=== PATIENT | male | born 1955 | race Caucasian/White ===

== ENCOUNTER 2017-08-14 08:35 | Emergency (ER) | payer BC ==
[~2017-08-14] VITALS: Ht 175.3 cm; Wt 138.6 kg
[~2017-08-14 08:35] MED LIST: APRESOLINE 25MG25 MG PO; ATIVAN 1MG T1 MG/TAB PO; COLACE 100100 MG/CAP PO; COREG 25MG25 MG/TAB PO; DIOVAN 160MG160 MG PO; GLUCOSAMINE MSM1 TAB PO; HCTZ 25MG TAB25 MG PO; MULTI-VITAMIN W1 TA1 PO; NORVASC 10MG10 MG PO; OMEGA 31000 MG PO; TOPROL XL100 MG PO; ZESTRIL40 MG PO; ZOCOR 10MG10 MG PO; ZOLOFT 25MG25 MG PO
[2017-08-14] MEDS ORDERED: ATACAND32 MG PO (09:00)
[2017-08-14] MEDS ORDERED: LASIX 40MG TABL40 MG PO (09:01)
[2017-08-14] MEDS ORDERED: COLACE 100100 MG/CAP PO (09:01)
[2017-08-14] MEDS ORDERED: ALDACTONE 25MG25 M1 PO (09:01)
[2017-08-14] MEDS ORDERED: OMEGA-3 1000 MG1 CAP PO (09:02)
[2017-08-14] MEDS ORDERED: GLUCOSAMIN 500 PO (09:02)
[2017-08-14] MEDS ORDERED: MIRALAX PA17 GM/Dose PO (09:02)
[2017-08-14 09:51] LABS: BASO % 0.5 % (0.0-2.0); EOS # 0.1 (0.0-0.7); EOS % 1.2 % (0-4.0); GRAN # 4.9 (1.4-6.5); GRAN % 74.7 % (42.2-75.2); HEMATOCRIT 37.4 % (42.0-52.0); HEMOGLOBIN 12.6 g/dl (13.5-18.0); LYMPH # 0.9 (1.2-3.4); LYMPH % 13.8 % (20.0-51.0); MEAN CELL VOLUME 94 fl (80.0-100.0); MEAN CORPUSCULAR HEMOGLOBIN 32 pg (27.0-31.0); MEAN CORPUSCULAR HGB CONC 34 g/dl (33.0-37.0); MEAN PLATELET VOLUME 9.7 fl (7.4-10.4); MONO # 0.6 (0.1-0.6); PLATELET COUNT 198 K/mm3 (130-400); RED BLOOD COUNT 3.97 M/mm3 (4.20-5.60); WHITE BLOOD COUNT 6.6 K/mm3 (4.8-10.8)
[2017-08-14 10:03] LABS: ADJUSTED CALCIUM 9.2 mg/dL (8.4-10.2); ALBUMIN 4.2 gm/dL (3.5-5.0); BILIRUBIN,TOTAL 0.9 mg/dL (0.0-1.0); CALCIUM 9.4 mg/dL (8.4-10.2); CREATININE, serum 1.14 mg/dL (0.66-1.25); POTASSIUM 4.8 mmol/L (3.4-5.0); TOTAL PROTEIN 7.4 gm/dL (6.4-8.2)
[2017-08-14 10:15] LABS: B-TYPE NATRIURETIC PEPTIDE 47 pg/mL (0-125); TROPONIN-I < 0.012 ng/mL (0.000-0.034)
[2017-08-14 10:22] LABS: COLLECTION METHOD CLEAN CATCH
[2017-08-14 10:45] LABS: MUCOUS Present /lpf; PH 6 (5-8); SQUAMOUS EPITHELIAL None Seen /hpf; URINE APPEARANCE Clear; URINE BACTERIA None Seen /hpf; URINE BILIRUBIN Negative (NEGATIVE); URINE BLOOD Negative (NEGATIVE); URINE COLOR Yellow; URINE GLUCOSE Negative (NEGATIVE); URINE KETONE Negative (NEGATIVE); URINE LEUKOCYTE ESTERASE Negative (NEGATIVE); URINE PROTEIN(semi-quant) Negative (NEGATIVE); URINE RBC 0-2 /hpf; URINE UROBILINOGEN Negative (NEGATIVE); URINE WBC 0-2 /hpf
[2017-08-14] MEDS ORDERED: XANAX 0.5MG0.5 MG PO (10:51)
[2017-08-14 11:32] VITALS: BP 109/65; PULSE 62; TEMP 97.3
== END 2017-08-14 11:28 | disposition home or self-care (01) ==
LOC: COL.ER 08:35
PROVIDERS: Emergency Medicine
DX: S09.90XA Unspecified injury of head, initial encounter (principal); R55 Syncope and collapse; Z23 Encounter for immunization; W22.8XXA Striking against or struck by other objects, initial encounter
CPT/HCPCS: J7030

== ENCOUNTER → 2019-11-20 | Outpatient (CLI) | payer MEDICARE, OTHER ==
[~2019-11-20] MED LIST changes: +ALDACTONE 25MG25 M1 PO; +ATACAND32 MG PO; +GLUCOSAMIN 500 PO; +LASIX 40MG TABL40 MG PO; +MIRALAX PA17 GM/Dose PO; +OMEGA-3 1000 MG1 CAP PO; +XANAX 0.5MG0.5 MG PO
== END ==
LOC: COL.RAD 08:05
DX: N28.1 Cyst of kidney, acquired (principal)
CPT/HCPCS: Q9967

== ENCOUNTER 2020-11-29 07:36 | Day surgery (SDC) | payer MEDICARE, OTHER ==
[2020-11-29] VITALS (13 sets, daily range): BP systolic 157–184; BP diastolic 44–71; PULSE 35–63; TEMP 97.8–98.2
[~2020-11-29] VITALS: Ht 175.3 cm; Wt 138.0 kg
[2020-11-29] MEDS ORDERED: COREG12.5 MG PO (08:39)
[2020-11-29] MEDS ORDERED: ASPIRIN E.C. 8181 MG PO (08:42)
[2020-11-29] MEDS ORDERED: LIPITOR 10MG10 MG PO (08:43)
[2020-11-29 08:44] LABS: HEMATOCRIT 44.5 % (42.0-52.0); HEMOGLOBIN 14.5 g/dl (13.5-18.0); MEAN CELL VOLUME 90 fl (80.0-100.0); MEAN CORPUSCULAR HEMOGLOBIN 29 pg (27.0-31.0); MEAN CORPUSCULAR HGB CONC 33 g/dl (33.0-37.0); MEAN PLATELET VOLUME 10.6 fl (7.4-10.4); PLATELET COUNT 251 K/mm3 (130-400); RED BLOOD COUNT 4.94 M/mm3 (4.20-5.60); REDCELL DISTRIBUTION WIDTH-CV 13.2 % (11.5-14.5)
[2020-11-29 08:49] LABS: INR 1.2 (0.8-3.0); PROTHROMBIN TIME 12.9 SECONDS (9.7-12.8)
[2020-11-29 08:51] LABS: CALCIUM 9.3 mg/dL (8.4-10.2); CREATININE, serum 1.14 (0.66-1.25); POTASSIUM 3.8 mmol/L (3.4-5.0)
[2020-11-29] MEDS ORDERED: REMERON 15M15 MG/TA1 PO (11:22)
[2020-11-29] MEDS ORDERED: COZAAR100 MG PO ×2 (11:23)
[2020-11-30] VITALS (7 sets, daily range): BP systolic 154–208; BP diastolic 55–77; PULSE 58–63; TEMP 97.9–98
[2020-11-30 07:38] LABS: BASO % 0.5 % (0.0-2.0); EOS # 0.1 (0.0-0.7); EOS % 2.5 % (0-4.0); GRAN # 3.8 (1.4-6.5); GRAN % 69.2 % (42.2-75.2); HEMATOCRIT 41.5 % (42.0-52.0); HEMOGLOBIN 13.7 g/dl (13.5-18.0); LYMPH # 1.1 (1.2-3.4); LYMPH % 19.8 % (20.0-51.0); MEAN CELL VOLUME 90 fl (80.0-100.0); MEAN CORPUSCULAR HEMOGLOBIN 30 pg (27.0-31.0); MEAN CORPUSCULAR HGB CONC 33 g/dl (33.0-37.0); MEAN PLATELET VOLUME 11.1 fl (7.4-10.4); MONO # 0.4 (0.1-0.6); MONO % 7.6 % (1.7-9.3); PLATELET COUNT 201 K/mm3 (130-400); RED BLOOD COUNT 4.62 M/mm3 (4.20-5.60); REDCELL DISTRIBUTION WIDTH-CV 13.3 % (11.5-14.5)
[2020-11-30 08:03] LABS: ALBUMIN 3.5 gm/dL (3.5-5.0); BILIRUBIN,TOTAL 0.7 mg/dL (0.0-1.0); CREATININE, serum 0.99 (0.66-1.25); POTASSIUM 3.8 mmol/L (3.4-5.0); TOTAL PROTEIN 6.5 gm/dL (6.4-8.2)
[2020-11-30] MEDS ORDERED: COREG 25MG25 MG/TAB PO (11:58)
[2020-11-30] MEDS ORDERED: DIOVAN HCT 25 M1 TAB PO (12:01)
== END 2020-11-30 14:23 | disposition home or self-care (01) ==
LOC: COL.CAR → MEDICAL 11:15 → COL.CAR 11-30 14:23
PROVIDERS: Internal Medicine Cardiovascular Disease
DX: Z45.010 Encounter for checking and testing of cardiac pacemaker pulse generator [battery] (principal); I44.2 Atrioventricular block, complete; I10 Essential (primary) hypertension; I70.1 Atherosclerosis of renal artery; I47.1 Supraventricular tachycardia; G47.33 Obstructive sleep apnea (adult) (pediatric); Z99.89 Dependence on other enabling machines and devices
CPT/HCPCS: OP; C1769; C1785; C1892; C1894; C1898; J0690; J2250; J3010; J7030

== ENCOUNTER → 2022-01-05 | Outpatient (CLI) | payer MEDICARE, OTHER ==
[~2022-01-05] MED LIST changes: +ASPIRIN E.C. 8181 MG PO; +COREG12.5 MG PO; +COZAAR100 MG PO; +DIOVAN HCT 25 M1 TAB PO; +LIPITOR 10MG10 MG PO; +REMERON 15M15 MG/TA1 PO
== END ==
LOC: COL.VAS 08:42
DX: R06.02 Shortness of breath (principal); M79.89 Other specified soft tissue disorders

== ENCOUNTER 2024-01-01 12:21 | Emergency (ER) | payer MEDICARE, OTHER ==
[~2024-01-01] VITALS: Ht 175.3 cm; Wt 138.6 kg
[2024-01-01 12:25] VITALS: TEMP 98.2
[2024-01-01 12:58] LABS: BASO # 0.1 K/mm3 (0.0-0.2); BASO % 0.6 % (0.0-2.0); EOS # 0.2 K/mm3 (0.0-0.7); EOS % 2.3 % (0.0-4.0); GRAN # 6.6 K/mm3 (1.4-6.5); HEMOGLOBIN 10.5 g/dl (13.5-18.0); LYMPH # 1.1 K/mm3 (1.2-3.4); LYMPH % 12.6 % (20.0-51.0); MEAN CELL VOLUME 72 fl (80.0-100.0); MEAN CORPUSCULAR HEMOGLOBIN 22 pg (27-31); MEAN CORPUSCULAR HGB CONC 31 g/dl (33.0-37.0); MEAN PLATELET VOLUME 9.6 fl (7.4-10.4); MONO # 0.8 K/mm3 (0.1-0.6); MONO % 8.8 % (1.7-9.3); PLATELET COUNT 325 K/mm3 (130-400); RED BLOOD COUNT 4.78 M/mm3 (4.20-5.60)
[2024-01-01 12:59] LABS: HEMATOCRIT 34.3 % (42.0-52.0)
[2024-01-01 13:04] LABS: INR 2.6 (0.8-3.0); PROTHROMBIN TIME 27.1 SECONDS (9.7-12.8)
[2024-01-01 13:13] LABS: ALBUMIN 3.5 g/dL (3.4-4.8); BILIRUBIN,TOTAL 0.5 mg/dL (0.2-1.2); CALCIUM 9.2 mg/dL (8.4-10.2); CREATININE, serum 1.26 mg/dL (0.72-1.25); POTASSIUM 4.4 mEq/L (3.5-4.5); TOTAL PROTEIN 7.1 g/dl (6.2-8.1)
[2024-01-01 13:19] LABS: TROPONIN-I 0.021 ng/mL (0.00-0.033)
[2024-01-01 14:52] VITALS: BP 132/66; PULSE 61
== END 2024-01-01 14:55 | disposition other institution (70) ==
LOC: COL.ER 12:21
PROVIDERS: Emergency Medicine
DX: I48.92 Unspecified atrial flutter (principal); Z79.01 Long term (current) use of anticoagulants; Z95.0 Presence of cardiac pacemaker

== ENCOUNTER 2024-01-03 10:55 | Inpatient (IN) | payer MEDICARE, OTHER ==
[~2024-01-03] VITALS: Ht 175.3 cm; Wt 140.0 kg
[2024-01-08] VITALS (7 sets, daily range): BP systolic 129–148; BP diastolic 76–84; PULSE 57–61; TEMP 97.9–98.5
[2024-01-08] MEDS ORDERED: APRESOLINE50 MG PO (09:20)
[2024-01-08 09:22] LABS: BASO % 0.5 % (0.0-2.0); EOS # 0.2 K/mm3 (0.0-0.7); EOS % 2.2 % (0.0-4.0); GRAN # 5.9 K/mm3 (1.4-6.5); LYMPH # 0.9 K/mm3 (1.2-3.4); LYMPH % 11.7 % (20.0-51.0); MEAN CELL VOLUME 72 fl (80.0-100.0); MEAN CORPUSCULAR HGB CONC 31 g/dl (33.0-37.0); MEAN PLATELET VOLUME 10.4 fl (7.4-10.4); MONO # 0.6 K/mm3 (0.1-0.6); MONO % 8.3 % (1.7-9.3); PLATELET COUNT 269 K/mm3 (130-400); RED BLOOD COUNT 4.45 M/mm3 (4.20-5.60); REDCELL DISTRIBUTION WIDTH-CV 18.3 % (11.5-14.5)
[2024-01-08] MEDS ORDERED: COUMADIN 5MG5 MG/TAB PO (09:22)
[2024-01-08 09:26] LABS: HEMATOCRIT 32.1 % (42.0-52.0); HEMOGLOBIN 9.8 g/dl (13.5-18.0); MEAN CORPUSCULAR HEMOGLOBIN 22 pg (27-31)
[2024-01-08 09:30] LABS: INR 2.6 (0.8-3.0); PROTHROMBIN TIME 28.1 SECONDS (9.7-12.8)
[2024-01-08 09:47] LABS: ALBUMIN 3.4 g/dL (3.4-4.8); BILIRUBIN,TOTAL 0.6 mg/dL (0.2-1.2); CREATININE, serum 1.44 mg/dL (0.72-1.25); MAGNESIUM 1.8 mg/dL (1.6-2.6); POTASSIUM 5.2 mEq/L (3.5-4.5); TOTAL PROTEIN 7.4 g/dl (6.2-8.1)
[2024-01-08] MEDS ORDERED: COREG 25MG25 MG/TAB PO (11:30)
[2024-01-08] MEDS ORDERED: Docusate Sodium 100 MG CAP PO PRN (11:30)
[2024-01-08] MEDS ORDERED: Polyethylene Glycol 3350 17 GM PDS PO PRN (11:30)
[2024-01-08] MEDS ORDERED: Acetaminophen 325 MG TAB PO PRN (11:30)
[2024-01-08] MEDS ORDERED: Temazepam 15 MG CAP PO PRN (11:30)
[2024-01-08] MEDS ORDERED: LASIX 20MG TABL20 MG PO (11:49)
[2024-01-08] MEDS ORDERED: COUMADIN 22.5 MG/TAB PO (12:03)
[2024-01-08] MEDS ORDERED: hydrALAZINE 25 MG TAB PO SCH (14:00)
--- NOTE | 2024-01-08 14:51 | NUR ---
Patient admitted to unit around 0830. Gait is steady. Skin intact. Stable on room air. Patient states he has difficulty getting up from bed/chair and has a history of syncope episodes, encouraged to call for assistance when wanting to get up. Patient verbalized understanding. IV initiated in left hand by MARY JANE Peterson. Telemetry on. at bedside. Tolerating food and fluids well. States he sometimes feels symptomatic from Afib, but overall he feels good. Discussed plans with daily EKGs and scheduled Sotalol. Patient verbalized understanding. Discussed medication reconciliation with MARY JANE Orellana from cardiology. Call light within reach, all needs met at this time.
[2024-01-08 15:21] LABS: CREATININE, serum 1.35 mg/dL (0.72-1.25); POTASSIUM 4.6 mEq/L (3.5-4.5)
[2024-01-08] MEDS ORDERED: Atorvastatin 10 MG TAB PO SCH (21:00)
[2024-01-08] MEDS ORDERED: Mirtazapine 15 MG TAB PO SCH (21:00)
--- NOTE | 2024-01-08 21:13 | NUR ---
NURSING SHIFT ASSESSMENT COMPLETED. THE PATIENT IS ALERT AND ORIENTED AND APPROPRIATE. THE PATIENT DENIES PAIN OR DISCOMFORT. THE PATIENT STATES THAT HE IS TIRED AT THIS TIME. NO OTHER NEEDS AT THIS TIME. THE PATIENT IS SITTING IN THE RECLINER. THE PLAN OF CARE AND EVENING MEDICATIONS REVIEWED. QUESTIONS AND CONCERNS ADDRESSED. CALL LIGHT AND PERSONAL BELONGINGS WITHIN REACH. THE BED IS IN THE LOW POSITION. THIS CURRICULUM FACILITATOR ASSISTED THE PATIENT WITH HIS CPAP SETUP.
[2024-01-09] VITALS (13 sets, daily range): BP systolic 119–151; BP diastolic 68–85; PULSE 57–86; TEMP 98–98.9
[2024-01-09 06:14] LABS: CALCIUM 8.8 mg/dL (8.4-10.2); CREATININE, serum 1.23 mg/dL (0.72-1.25); POTASSIUM 4.4 mEq/L (3.5-4.5)
[2024-01-09 07:55] LABS: BASO # 0.1 K/mm3 (0.0-0.2); BASO % 0.8 % (0.0-2.0); EOS # 0.2 K/mm3 (0.0-0.7); EOS % 2.3 % (0.0-4.0); GRAN # 4.5 K/mm3 (1.4-6.5); GRAN % 70.8 % (42.2-75.2); LYMPH # 1.1 K/mm3 (1.2-3.4); LYMPH % 16.7 % (20.0-51.0); MEAN CELL VOLUME 71 fl (80.0-100.0); MEAN CORPUSCULAR HGB CONC 31 g/dl (33.0-37.0); MEAN PLATELET VOLUME 10.1 fl (7.4-10.4); MONO # 0.6 K/mm3 (0.1-0.6); MONO % 9.1 % (1.7-9.3); PLATELET COUNT 293 K/mm3 (130-400); RED BLOOD COUNT 4.42 M/mm3 (4.20-5.60); REDCELL DISTRIBUTION WIDTH-CV 18.4 % (11.5-14.5)
[2024-01-09 07:58] LABS: HEMATOCRIT 31.5 % (42.0-52.0); HEMOGLOBIN 9.7 g/dl (13.5-18.0); MEAN CORPUSCULAR HEMOGLOBIN 22 pg (27-31)
[2024-01-09] MEDS ORDERED: LOSARTAN 50 MG PO SCH (09:00)
[2024-01-09] MEDS ORDERED: HYDROCHLOROTHIAZIDE 25 MG PO SCH (09:00)
[2024-01-09] MEDS ORDERED: Omega-3 Fatty Acid Esters (OTC) 1,000 MG CAP PO SCH (09:00)
[2024-01-09] MEDS ORDERED: Docusate Sodium 100 MG CAP PO SCH (09:00)
[2024-01-09] MEDS ORDERED: Ferrous Sulfate 325 MG TAB PO SCH (10:13)
--- NOTE | 2024-01-09 10:27 | NUR ---
Initial visit; Patient and his thanked Development Intern for looking in on him and offering Spiritual Care. Bartolome was receptive to Development Intern keeping him in her prayers. Development Intern wished him well.
--- NOTE | 2024-01-09 11:34 | NUR ---
Patient alert and oriented x4. Sitting up in recliner upon entry in to room. Patient denies pain or discomfort. Expressed concern over bloody IV extension tubing, tubing flushed with no issues. Patient takes daily Coumadin. Heart rhythm irregular, rate within normal limits. Tolerating food and fluids well. Discussed possible cardioversion tomorrow per cardiology orders. Call light within reach, at bedside. All needs met at this time.
--- NOTE | 2024-01-09 13:58 | NUR ---
Follow-up visit; Patient asked that Laboratory Machinist return to 'cheer him up.' He, his and Laboratory Machinist visited about what was going on with him; his loss of comfort and control due to change of surroundings and feeling 'cranky' because his life is turned upside-down. He said he just wanted to hear laughter and there was plenty of laughter and a [place] from Numbers [phone]. He and Geno thanked Laboratory Machinist for returning.
--- NOTE | 2024-01-09 15:06 | NUR ---
REFUGIO Berry identified self as REFUGIO Student and completed intake with patient and at bedside. Patient lives in [place], [place] with his Geno (ph#[phone]). Patient sees Dr. Dominique Mccracken for primary care and stated that he is needing to follow up with her as he hasn't in awhile. Patient obtains medications from [facility] with no issues. Patient stated that he is independent with ADLs but sometimes needs assistance with getting his shoes on and off. Patient stated that he does not utilize any mobility devices and does use a CPAP. Patient stated that he usually transports himself to medical appointments. stated that she is designated as patient's primary DPOA-HC but thinks their children may also be listed as alternates. REFUGIO Student discussed Home Health as an option if needed. Patient stated that he thinks at this time it is not needed. REFUGIO Student advised patient to discuss Home Health with PCP if needed in the future. Patient stated that he plans to return home at time of discharge. Discharge Plan: Home
--- NOTE | 2024-01-09 19:20 | NUR ---
Patient remains stable. Denies pain. Reports a couple of loose stools, but states he believes it was something he ate. Expressed concern over gallbladder due to family history, states he gets loose stools more frequently now in reaction to food. Patient worried he will have loose stool during cardioversion. Patient encouraged to follow up with PCP regarding gallbladder concerns, but attempted to update cardiology regarding loose stools and patient concerns. Cardiology paged, no call returned. at bedside and is spending the night with permission from night charge nurse as well as floor installer MARY JANE Sunshine. Call light within reach, all needs met at this time.
[2024-01-09] MEDS ORDERED: Warfarin 5 MG TAB PO SCH (21:00)
--- NOTE | 2024-01-09 21:00 | NUR ---
Initial shift assessment done- denies any chest pain/heart racing, Up in chair, Up in room as tolerated, steady on feet. Tele on- aflutter per telephone worker,, VSS, NPO after MN for ? C/V in am.
[2024-01-10] VITALS (12 sets, daily range): BP systolic 111–156; BP diastolic 62–89; PULSE 60–70; TEMP 97.4–98.5
--- NOTE | 2024-01-10 05:53 | NUR ---
No requests, Has been resting quietly most of the night-- VSS, Tele on -no calls from Tele as to any changes
[2024-01-10 06:46] LABS: BASO % 0.6 % (0.0-2.0); EOS # 0.2 K/mm3 (0.0-0.7); EOS % 2.8 % (0.0-4.0); GRAN # 4.7 K/mm3 (1.4-6.5); GRAN % 71.3 % (42.2-75.2); LYMPH % 14.5 % (20.0-51.0); MEAN CELL VOLUME 71 fl (80.0-100.0); MEAN CORPUSCULAR HGB CONC 31 g/dl (33.0-37.0); MEAN PLATELET VOLUME 9.6 fl (7.4-10.4); MONO # 0.7 K/mm3 (0.1-0.6); MONO % 10.2 % (1.7-9.3); PLATELET COUNT 292 K/mm3 (130-400); RED BLOOD COUNT 4.25 M/mm3 (4.20-5.60); REDCELL DISTRIBUTION WIDTH-CV 18.4 % (11.5-14.5)
[2024-01-10 06:53] LABS: HEMATOCRIT 30.2 % (42.0-52.0); HEMOGLOBIN 9.4 g/dl (13.5-18.0); MEAN CORPUSCULAR HEMOGLOBIN 22 pg (27-31)
--- NOTE | 2024-01-10 07:00 | NUR ---
Patient in sitting up in chair, alert and oriented x 4, at bedside. Denies any chest pain or palpitations. NPO from midnight. He signed consent for cardioversion. Assessment completed, student nurse at bedside. No further needs at this time. Call light within reach.
[2024-01-10 07:02] LABS: CALCIUM 8.8 mg/dL (8.4-10.2); CREATININE, serum 1.21 mg/dL (0.72-1.25); INR 2.1 (0.8-3.0); POTASSIUM 4.1 mEq/L (3.5-4.5); PROTHROMBIN TIME 22.3 SECONDS (9.7-12.8)
--- NOTE | 2024-01-10 07:45 | NUR ---
NURSING SHIFT ASSESSMENT COMPLETED. PATIENT ALERT AND ORIENTED X4. PATIENT RESTING IN RECLINER; SPOUSE AT BEDSIDE. TELEMETRY IN PLACE; KRISTIE, PACED AT 60BPM. PATIENT NPO SINCE MIDNIGHT IN PREPARATION FOR CARDIOVERSION THIS MORNING. PATIENT DENIES PAIN AT THIS TIME. QUESTIONS AND CONCERNS REVIEWED. CALL LIGHT WITHIN REACH.
--- NOTE | 2024-01-10 11:23 | NUR ---
Follow-up visit; Patient and his Geno thanked for looking in on him and saying a blessing prior to his going in for a 'Procedure' with Dr. Ramey. wished him well and said it is a pleasure knowing them.
--- NOTE | 2024-01-10 13:34 | NUR ---
Patient is taken for cardioversion.
[2024-01-10] MEDS ORDERED: Lidocaine PF 2% (20 MG/ML) 5 ML VIAL ONE (13:47)
[2024-01-10] MEDS ORDERED: Hydrocortisone 1% Cream 30 GM TUBE TP PRN (14:30)
[2024-01-10] MEDS ORDERED: BETAPACE 80MG80 MG PO (14:34)
--- NOTE | 2024-01-10 14:48 | NUR ---
PATIENT ALERT AND ORIENTED, VSS. PATIENT TRANSPORTED VIA BED TO [facility]. UPDATE PROVIDED TO PATIENT'S SPOUSE. VITAL SIGNS TAKEN ON ARRIVAL, VSS. PATIENT DENIES COMPLAINTS AT THIS TIME. CALL LIGHT PLACED WITHIN REACH, BED IN LOWEST POSITION, X3 BEDRAILS IN PLACE. TRANSFER OF CARE TO MARY JANE SALEEM.
--- NOTE | 2024-01-10 14:48 | NUR ---
Patient is back from cardioversion, alert and oriented x 4. VSS. Denies any pain or discomfort.
--- NOTE | 2024-01-10 16:23 | NUR ---
Patient was provided with discharge information, all questionsn answered. IV access and telemetry were discontinnued.
== END 2024-01-10 16:30 | disposition home or self-care (01) | DRG 310 ==
LOC: MEDICAL 01-08 08:15
PROVIDERS: ADMIT Internal Medicine Cardiovascular Disease
PROC: 5A2204Z Restoration of Cardiac Rhythm, Single (ICD-10-PCS; principal; 2024-01-10)
DX: I48.0 Paroxysmal atrial fibrillation (principal); E87.5 Hyperkalemia; I48.92 Unspecified atrial flutter; I34.0 Nonrheumatic mitral (valve) insufficiency; I47.20 Ventricular tachycardia, unspecified; Z95.0 Presence of cardiac pacemaker; Z23 Encounter for immunization
CPT/HCPCS: J2704

== ENCOUNTER 2024-01-13 08:36 | Emergency (ER) | payer MEDICARE, OTHER ==
[~2024-01-13] VITALS: Ht 175.3 cm; Wt 140.0 kg
[~2024-01-13 08:36] MED LIST changes: +APRESOLINE50 MG PO; +BETAPACE 80MG80 MG PO; +COUMADIN 22.5 MG/TAB PO; +COUMADIN 5MG5 MG/TAB PO; +LASIX 20MG TABL20 MG PO
[2024-01-13 08:44] VITALS: TEMP 98.3
[2024-01-13] MEDS ORDERED: Furosemide 40 MG/4 ML VIAL IV ONE (09:30)
[2024-01-13 09:46] LABS: BASO % 0.4 % (0.0-2.0); EOS # 0.1 K/mm3 (0.0-0.7); GRAN # 7.6 K/mm3 (1.4-6.5); GRAN % 81.3 % (42.2-75.2); LYMPH # 0.8 K/mm3 (1.2-3.4); LYMPH % 8.5 % (20.0-51.0); MEAN CELL VOLUME 72 fl (80.0-100.0); MEAN CORPUSCULAR HGB CONC 30 g/dl (33.0-37.0); MEAN PLATELET VOLUME 9.9 fl (7.4-10.4); MONO # 0.8 K/mm3 (0.1-0.6); MONO % 8.3 % (1.7-9.3); PLATELET COUNT 321 K/mm3 (130-400); RED BLOOD COUNT 4.36 M/mm3 (4.20-5.60); REDCELL DISTRIBUTION WIDTH-CV 18.4 % (11.5-14.5)
[2024-01-13 09:55] LABS: HEMATOCRIT 31.5 % (42.0-52.0); HEMOGLOBIN 9.5 g/dl (13.5-18.0); MEAN CORPUSCULAR HEMOGLOBIN 22 pg (27-31)
[2024-01-13 09:58] LABS: ALBUMIN 3.5 g/dL (3.4-4.8); CREATININE, serum 1.16 mg/dL (0.72-1.25); POTASSIUM 4.3 mEq/L (3.5-4.5); TOTAL PROTEIN 7.1 g/dl (6.2-8.1)
[2024-01-13 10:03] LABS: TROPONIN-I 0.02 ng/mL (0.00-0.033)
[2024-01-13] MEDS ORDERED: KLOR-CON20 MEQ PO (10:48)
[2024-01-13] MEDS ORDERED: LASIX 20MG TABL20 MG PO (10:48)
[2024-01-13 11:00] VITALS: BP 137/75; PULSE 77
== END 2024-01-13 11:01 | disposition home or self-care (01) ==
LOC: COL.ER 08:36
PROVIDERS: Personal Emergency Response Attendant
DX: E87.70 Fluid overload, unspecified (principal)
CPT/HCPCS: J1940